=== PATIENT | male | born 1990 ===

== ENCOUNTER 2018-06-03 22:20 | Observation (INO) | payer SELFPAY ==
[2018-06-03 23:38] LABS: BASO # 0.1 K/uL (0.0-0.2); EOS # 0.3 K/uL (0.0-0.7); EOS % 2.1 % (0.0-4.0); HEMOGLOBIN 13.3 g/dL (12.0-18.0); LYMPH # 2.6 K/uL (1.0-4.3); LYMPH % 20.2 % (20.0-40.0); MEAN CORPUSCULAR HEMOGLOBIN 32.8 pg (27.0-31.0); MEAN CORPUSCULAR HGB CONC 34.9 g/dL (33.0-37.0); MEAN PLATELET VOLUME 7.8 fL (7.2-11.7); MONO # 1.1 K/uL (0.0-0.8); MONO % 8.6 % (0.0-10.0); NEUT # 8.8 K/uL (1.8-7.0); NEUT % 68.1 % (50.0-75.0); RBC 4.04 Mil/uL (4.40-5.90); RED CELL DISTRIBUTION WIDTH 12.3 % (11.5-14.5); WHITE BLOOD COUNT 12.9 K/uL (4.8-10.8)
[2018-06-03] MEDS ORDERED: Vancomycin 1 GM 1 GM/250 ML BAG IVPB STA (23:42)
[2018-06-03] MEDS ORDERED: Piperacillin/Tazobact 3.375 gm 100 ML IVPB STA (23:43)
[2018-06-03] MEDS ORDERED: Vancomycin 1 gm/NS 200 ml 1 GM/200 ML BAG IVPB STA (23:48)
[2018-06-03] MEDS ORDERED: Piperacillin/Tazobact 3.375 gm 100 ML IVPB ONE (23:52)
[2018-06-03 23:58] LABS: ALB/GLOB RATIO 1.4 (1.0-2.1); ALBUMIN 4.6 g/dL (3.5-5.0); ALT/SGPT 26 U/L (21-72); AST/SGOT 21 U/L (17-59); BLOOD UREA NITROGEN 14 mg/dL (9-20); CALCIUM 9.8 mg/dl (8.6-10.4); GFR AFRICAN-AMERICAN > 60; GFR NON-AFRICAN AMERICAN > 60
[2018-06-03] MEDS ORDERED: Sodium Chloride 0.9% 1,000 ML ONE (23:59)
[2018-06-04] MEDS: Sodium Chloride 0.9% 1,000 ML IV SCH ×2 (00:01→09:57)
[2018-06-04 00:05] LABS: INR 1.3; PROTHROMBIN TIME 14.1 SECONDS (9.7-12.2)
--- NOTE | 2018-06-04 00:12 | CP.PCM.HP ---
History of Present Illness - History of Present Illness History of Present Illness: GENERAL SURGERY HISTORY AND PHYSICAL FOR DR. YI 27yo M with PMHx of Hepatitis C s/p IVDA presents to the ED with a buttock abscess. The abscess began a week ago and has been enlarging. The patient reports pain at the area and is unable to lie on his back. The patient went to an urgent care center in [place], [place] where he lives and per the pt, they were planning on doing I&D but after they injected the local, the pain was unbearable and he left before any drainage or incision was attempted. Patient denies fever, chills, abdominal pain, CP, SOB. Pt reports one prior abscess in his groin which resolved with antibiotics only. Pt denies any prior abscesses in buttock/lower back area. PMHx: Hepatitis C (never treated, no follow up) Surgeries: lap abelardo in [place] Allergies: none Medications: none Social history: smokes 4 cigarettes per day, smokes marijuana "all day long", former drug use including heroin, cocaine, and "I have tried every other type of drug". Pt states no drug use over past year other than marijuana. Present on Admission - Present on Admission Any Indicators Present on Admission: No Review of Systems - Review of Systems All systems: reviewed and no additional remarkable complaints except (as per hpi ) Past Patient History - Past Social History Smoking Status: Heavy Smoker > 10 Cigarettes Daily - HEMATOLOGICAL/ONCOLOGICAL Hx Hepatitis C: Yes - PSYCHIATRIC Hx Substance Use: Yes - SURGICAL HISTORY Hx Cholecystectomy: Yes Meds Allergies/Adverse Reactions: Allergies Allergy/AdvReac Type Severity Reaction Status Date / Time No Known Allergies Allergy Unverified 06/03/18 22:31 Physical Exam - Constitutional Appears: Well, Non-toxic, No Acute Distress - Head Exam Head Exam: ATRAUMATIC, NORMAL INSPECTION - Eye Exam Eye Exam: EOMI, Normal appearance - Respiratory Exam Respiratory Exam: NORMAL BREATHING PATTERN. absent: Respiratory Distress - Cardiovascular Exam Cardiovascular Exam: +S1, +S2 - GI/Abdominal Exam GI & Abdominal Exam: Soft. absent: Distended, Firm, Guarding, Tenderness Additional comments: well healed laparoscopic scars - Neurological Exam Neurological exam: Alert, CN II-XII Intact, Oriented x3 - Psychiatric Exam Psychiatric exam: Anxious - Skin Additional comments: Left superior buttock: 3.5x4cm abscess with central fluctuance, tenderness, erythema, surrounding induration Results - Vital Signs Recent Vital Signs: Last Vital Signs Temp 98.8 F 06/03/18 22:28 Pulse 100 H 06/03/18 22:28 Resp 18 06/03/18 22:28 BP 140/83 06/03/18 22:28 Pulse Ox 98 06/03/18 22:28 - Labs Result Diagrams: 06/03/18 23:31 06/03/18 23:31 Labs: Laboratory Results - last 24 hr 06/03/18 06/03/18 06/03/18 23:31 23:31 23:52 WBC 12.9 H RBC 4.04 L Hgb 13.3 Hct 38.0 MCV 94.0 MCH 32.8 H MCHC 34.9 RDW 12.3 Plt Count 328 MPV 7.8 Neut % (Auto) 68.1 Lymph % (Auto) 20.2 Sandoval % (Auto) 8.6 Eos % (Auto) 2.1 Baso % (Auto) 1.0 Neut # (Auto) 8.8 H Lymph # (Auto) 2.6 Sandoval # (Auto) 1.1 H Eos # (Auto) 0.3 Baso # (Auto) 0.1 PT 14.1 H INR 1.3 APTT 34 Sodium 142 Potassium 4.0 Chloride 104 Carbon Dioxide 28 Anion Gap 15 BUN 14 Creatinine 0.8 Est GFR ( Amer) > 60 Est GFR (Non-Af Amer) > 60 Random Glucose 109 Calcium 9.8 Total Bilirubin 0.5 AST 21 ALT 26 Alkaline Phosphatase 70 Total Protein 8.0 Albumin 4.6 Globulin 3.4 Albumin/Globulin Ratio 1.4 Assessment & Plan - Assessment and Plan (Free Text) Assessment: 27yo M with PMHx of Hepatitis C s/p IVDA - Afebrile, HR 100, WBC 12.9 - Option given for bedside I&D vs OR. Pt requests OR due to inability to tolerate pain from local anesthesia. - Plan for I&D in OR today, will take wound cx - Procedure explained to pt and partner, all questions answered, written consent obtained - IV antibiotics - NPO past midnight - IV fluids - Toradol PRN pain - Will discuss plan with Dr. Logan Segura PGY-4
[2018-06-04] MEDS ORDERED: Piperacill/Tazo 3.375gm in Dex 3.375 GM/50 ML BAG IVPB SCH (00:30)
[2018-06-04] MEDS: Lactated Ringer's 1,000 ML IV SCH ×2 (00:31→09:57)
--- NOTE | 2018-06-04 01:06 | C.PDOC ---
History Of Present Illness 27 y/o male with Hx of IVDA and hepatitis C presents to ED for complaints of pain and swelling to his left upper buttock area that began 1 week ago. Patient states he was seen in an urgent care for I&D but he could not tolerate the the lidocaine and left before procedure was done. Denies fever, chills, prior episodes, or any other physical complaints. Time Seen by Provider: 06/03/18 22:40 Chief Complaint (Nursing): Abnormal Skin Integrity History Per: Patient History/Exam Limitations: no limitations Onset/Duration Of Symptoms: Days (7) Current Symptoms Are (Timing): Still Present Recent travel outside of the [place]: No Past Medical History Reviewed: Historical Data, Nursing Documentation, Vital Signs Vital Signs: Last Vital Signs Temp 99 F 06/04/18 01:00 Pulse 74 06/04/18 01:00 Resp 20 06/04/18 01:00 BP 109/58 L 06/04/18 01:00 Pulse Ox 98 06/04/18 02:48 - Medical History PMH: No Chronic Diseases, Hepatitis Surgical History: Cholecystectomy Family History: States: No Known Family Hx - Social History Hx Alcohol Use: (DENIED) Hx Substance Use: Yes Review Of Systems Constitutional: Negative for: Fever, Chills Cardiovascular: Negative for: Chest Pain Gastrointestinal: Negative for: Nausea, Vomiting, Abdominal Pain, Diarrhea Skin: Positive for: Other (Left upper buttock pain and swelling ). Negative for : Rash Neurological: Negative for: Weakness, Numbness Physical Exam - Physical Exam Skin: Warm, Dry, No Rash, Other (6cm by 6 cm erythematous abscess with central fluctuance, tenderness, erythema, surrounding induration of left superior buttock) Head: Atraumatic, Normacephalic Eye(s): bilateral: Normal Inspection, PERRL, EOMI Oral Mucosa: Moist Neck: Supple Chest: Symmetrical, No Tenderness Cardiovascular: Rhythm Regular, No Murmur Respiratory: Normal Breath Sounds, No Decreased Breath Sounds, No Rales, No Rhonchi, No Wheezing Gastrointestinal/Abdominal: Soft, No Tenderness, No Distention Extremity: Normal ROM, No Deformity, No Swelling Extremity: Bilateral: Atraumatic, Normal Color And Temperature, Normal ROM Neurological/Psych: Oriented x3, Normal Speech Gait: Steady ED Course And Treatment - Laboratory Results Result Diagrams: 06/03/18 23:31 06/03/18 23:31 O2 Sat by Pulse Oximetry: 98 (RA) Pulse Ox Interpretation: Normal Medical Decision Making Medical Decision Making: Administered IV fluids and Toradol. Ordered blood work and EKG. Surgery concept called. Patient will be admitted. Disposition Discussed With Dr.: Nicho Ford Jr. Doctor Will See Patient In The: Hospital - Disposition Disposition: HOSPITALIZED Disposition Time: 12:30 Condition: GOOD - Clinical Impression Clinical Impression: Pilonidal abscess - PA / [employer] / Resident Statement MD/DO has reviewed & agrees with the documentation as recorded. - Scribe Statement The provider has reviewed the documentation as recorded by the Lorinibkristen Eason All medical record entries made by the Lorinibkristen were at my direction and personally dictated by me. I have reviewed the chart and agree that the record accurately reflects my personal performance of the history, physical exam, medical decision making, and the department course for this patient. I have also personally directed, reviewed, and agree with the discharge instructions and disposition.
[2018-06-04 02:59] LABS: BARBITURATES, UR NEGATIVE (NEGATIVE); BENZODIAZEPINES, UR NEGATIVE (NEGATIVE); OPIATES, UR NEGATIVE (NEGATIVE); PHENCYCLIDINE, UR NEGATIVE (NEGATIVE)
[2018-06-04] MEDS: Piperacill/Tazo 3.375gm in Dex 3.375 GM/50 ML BAG IVPB SCH ×2 (05:38→11:56)
[2018-06-04] MEDS ORDERED: Propofol 10 mg/ml Inj (20 ML) ONE (10:25)
[2018-06-04] MEDS ORDERED: Midazolam 2 MG/2 ML VIAL ONE (10:25)
[2018-06-04] MEDS ORDERED: Lactated Ringer's 1,000 ML IV ONE (10:30)
--- NOTE | 2018-06-04 11:04 | PCM.SURG1 ---
Surgeon's Initial Post Op Note - Surgeon's Notes Surgeon: Dr. Ford Swage Toolsetter: Dr. Ott PGY3, Dr. Gonzalez PGY4 Type of Anesthesia: General LMA Pre-Operative Diagnosis: Left superior gluteal abscess Operative Findings: see operative report Post-Operative Diagnosis: same Operation Performed: incision and drainage of left superior gluteal abscess Specimen/Specimens Removed: purulent fluid culture Estimated Blood Loss: EBL {In ML}: 10 Blood Products Given: N/A Drains Used: No Drains Post-Op Condition: Good Date of Surgery/Procedure: 06/04/18 Time of Surgery/Procedure: 11:04
[2018-06-04] MEDS: HYDROmorphone 0.5 mg/0.5 ml ISec IVP PRN ×2 (11:55→12:10)
[2018-06-04] MEDS ORDERED: Pneumococcal 23-Valent Vaccine IM ONE (14:00)
[2018-06-04 16:23] VITALS: BP 138/59; PULSE 66; RESP 20; TEMP 98.4; O2SAT 99
--- NOTE | 2018-06-04 21:23 | OP ---
Copied To: Nicho Ford Jr., MD Attending MD: Nicho Ford Jr., MD PROCEDURE DATE: 06/04/2018 PREOPERATIVE DIAGNOSIS: Pilonidal abscess on the left side of buttocks. PROCEDURE CARRIED OUT: Incision and drainage. SURGEON: Nicho Ford Jr., MD ASSISTANTS: Tramaine Ott DO and Keanu Gonzalez DO. ANESTHESIOLOGIST: Stephanie Galdamez CRNA INDICATIONS: The patient is a young man with history of multiple other medical problems . He was seen in the hospital, signed out AMA. OPERATIVE FINDINGS: Large abscess, about 50 mL of pus drained, cultures taken. Wound packed open, cruciate incision made over it. The patient tolerated the procedure uneventfully. Nicho Ford Jr., MD
[2018-06-05] MEDS ORDERED: Vancomycin 1 gm/NS 200 ml 1 GM/200 ML BAG IVPB SCH (01:00)
[2018-06-05] MEDS ORDERED: Enoxaparin 40 mg Syringe SC SCH (10:00)
--- NOTE | 2018-06-08 20:57 | CARD ---
APPROVED REPORT EKG Measurement Heart [id number] <Conclusion> Normal sinus rhythm Normal ECG
== END 2018-06-04 17:30 | disposition left against medical advice (07) ==
LOC: C.ER 22:20 → C.9E 23:44 → C.6T 06-04 00:27
PROVIDERS: ADMIT Surgery Vascular Surgery; ATTEND Surgery Vascular Surgery
DX: L02.31 Cutaneous abscess of buttock (principal); L05.01 Pilonidal cyst with abscess; F17.210 Nicotine dependence, cigarettes, uncomplicated; F12.90 Cannabis use, unspecified, uncomplicated
CPT/HCPCS: 10060; 36415; 80053; 85025; 85610; 85730; 86703; 87070; 93005; 96365; 96366; 96375; 96376; 99284; G0378; G0480; J1170; J1885; J2001; J2250; J2405; J2543; J2704; J3010; J3370; J7030; J7120